=== PATIENT | male | born 1960 | race Caucasian/White ===

== ENCOUNTER 2018-05-08 11:14 | Day surgery (SDC) | payer BC, SELFPAY ==
[2018-05-08 11:35] VITALS: BP 159/93; PULSE 71; RESP 18; TEMP 36.7; O2SAT 98
[2018-05-08] MEDS: Lactated Ringers 1,000 ML 30 ML IV (11:50)
--- NOTE | 2018-05-08 14:50 | BOWEL_PTH ---
PATIENT: Earl Cardoso LOC: [facility] U#:[id number] AGE/SX: 58/M ROOM: RE05/08/[address]: Yony Azul DO : 1960 BED: DIS: 05/08/2018 SPEC #: [id number] RECD: 05/08/18 17:36 STATUS: TAMIE REQ #: [id number] NATY: 05/08/18 14:[address]: Yony Azul DEPT: Surgical Specimen RECD BY: Adriana Johnson ENTERED: 05/08/18 17:37 SP TYPE: Bowel OTHR DR: Tucker Hernandez Tissues: 1 - BIOPSY BOWEL Procedures: GROSS AND MICRO LEVEL 4 Comments: [id number]
[2018-05-08 15:28] VITALS: BP 182/110; PULSE 58; RESP 18; TEMP 36.7; O2SAT 98
--- NOTE | 2018-05-08 15:38 | COLE_ITS ---
Date of service: 05/08/18 Time of Service: 15:00 Colonoscopy Report Date of procedure: 05/08/18 Pre-op diagnosis general: Personal history of colon polyps Post-op diagnosis procedure note: other (Rectal mass) Procedure: Colonoscopy to the Cecum with biopsy by cold forceps. Surgeon: Yony Azul Anesthesia proc note operative: MAC (Yves Robles CRNA; ASA II, Mallamapati class II) Estimated blood loss (mL): 1 Pathology: other (Rectal mass biopsies) Complications: None Disposition: same day Indications: 58-year-old gentleman presenting for colorectal cancer screening with a personal history of colon polyps. His last colonoscopy was 5 years ago, which was remarkable for a tubular adenoma and a sessile serrated adenoma. He has been asymptomatic since his last colonoscopy, which she denies any hematochezia, m elana, abdominal pain, change in bowel habits, weight loss, night sweats, or fatigue. The colonoscopy procedure was reviewed with him, and the risk of the procedure discussed at length. All his questions were answered to his satisfaction. Consent was obtained to proceed with colonoscopy. Prep: Miralax/Dulcolax (Colon prep excellent) Procedure Start Time: 14:35 Procedure End Time: 14:50 Retraction Time: 10 Findings: In examining the colon from cecum to anus. A ulcerated mass was identified in the rectum at about 12 cm. Multiple biopsies were taken and submitted for pathology. No other abnormalities were noted of the colon, rectum, or anorectal junction. Procedure Description: The patient was seen in the day surgery waiting area. His identification was confirmed, and procedure checked. He was then brought to the procedure room. Monitoring for telemetry, blood pressure, oxygen saturation, and end tidal CO2 monitoring were applied. An appropriate time out was performed to confirm, identification, allergies, medication, procedure, was performed. Sedation was titrated for affect by the MAINTENANCE REPRESENTATIVE; Once adequate sedation was achieved, I performed a inspection of the external perineum, and a digitial rectal examination. No significant external abnormalities were noted. On digital rectal examination, there was no blood, no masses, good rectal tone, and a normal prostate. I advanced the colonoscope from the anus to the cecum under direct visualization. The cecum was identified by the ileal-cecal valve, and the appendiceal orifice. The scope was then withdrawn in circumferential manner from the cecum to the rectum. No abnormalites were noted in the colon. The scope was then withdrawn into the rectum, and ulcerated mass was identified at approximately 12 cm from the anal verge in the rectum. It was nonspecific circumferential, and occupied less than one fourth of the circumference of the lumen. The scope was then retroflexed, and no further abnormalities were noted of the rectum or anorectal junction. The scope was then withdrawn, terminating the procedure. There were no complications during the procedure, and the patient tolerated the procedure well. He was returned to the day surgery recovery area in good condition. Plan: Ulcerated rectal mass suspicious for rectal malignancy with biopsies pending. In the interim we will plan to obtain a CT abdomen pelvis, along with chest if able to obtain authorization for chest abdomen and pelvis, otherwise will obtain CT abdomen pelvis with chest x-ray. Plan for referral to colorectal surgery if confirmed as cancer for further workup and possible transanal excision if favorable.
[2018-05-08] MEDS: Acetaminophen 325 MG TAB 650 MG PO (15:45)
--- NOTE | 2018-05-08 19:16 | W.PM.DSUDISC ---
Discharge Plan Disposition Patient Disposition: HOME Condition: Good Discharge Details Reason For Visit: Screening colonoscopy w/personal hx colon polyps Attending Provider: Yony Azul Primary Care Provider: Tucker Hernandez [place] Meds and New Rx's Prescriptions: Continued Vyvanse 40 mg capsule 40 mg PO DAILY RF: 0 acetaminophen [Acetaminophen Extra Strength] 500 MG tablet 500 - 1,000 mg PO PRN PRNRF: 0 ibuprofen 200 mg Capsule 400 mg PO QID PRNRF: 0 diclofenac sodium 1 % Gel 2 g TOPICAL QID RF: 0 Discontinued bisacodyl [Dulcolax (bisacodyl)] 5 mg tablet,delayed release (DR/EC) 5 mg PO ONCE Qty: 4 RF: 0 polyethylene glycol 3350 17 gram/dose powder 255 g PO ONCE Qty: 255 RF: 0 Discharge Instructions Instructions: Colonoscopy (DC) Stand Alone Forms: Colonoscopy Post Instructions, Rachel Qiu (DSU) Activity:: Activity as Tolerated Diet:: As Tolerated Discharge Orders Discharge Orders: Discharge Order (Routine); Ordered 05/08/18 Ordered By: Yony Azul Discharge Data Discharge Date/Time-TO BE ENTERED AT DEPARTURE: 05/08/18 16:00 Discharge Comment: PT ESCORTED HOME WITH SPOUSE DS: Diagnosis Discharge Diagnosis (1) Encounter for screening colonoscopy: Status: Resolved Asessment and Plan: Colonoscopy performed
== END 2018-05-08 16:00 | disposition home or self-care (01) ==
PROVIDERS: PCP Internal Medicine; Visit Provider Surgery
PROC: 0DJD8ZZ Inspection of Lower Intestinal Tract, Via Natural or Artificial Opening Endoscopic (ICD-10-PCS; CPT 45378; principal; 2018-05-08 12:30)
DX: Z12.11 Encounter for screening for malignant neoplasm of colon (principal); K51.20 Ulcerative (chronic) proctitis without complications; K62.1 Rectal polyp; Z86.010 Personal history of colon polyps
CPT/HCPCS: 45380; 88305

== ENCOUNTER 2018-05-14 01:04 | Outpatient (CLI) | payer BC, SELFPAY ==
--- NOTE | 2018-05-14 12:21 | DI.CT_ITS ---
SYMPTOMS/DIAGNOSIS: RECTAL CANCER STAGING, C20, MALIGNANT NEOPLASM OF RECTUM CT SCAN OF THE CHEST, ABDOMEN AND PELVIS: CT scan of the chest, abdomen and pelvis was performed following the uneventful administration of intravenous and oral contrast material. Comparison CT scan of the chest is 09/05/14. CT SCAN OF THE ABDOMEN AND PELVIS: The liver is normal in size. No evidence of a hepatic mass is present. The portal and superior mesenteric veins are patent. The gallbladder is negative. No biliary ductal dilatation is seen. The pancreas, spleen and right adrenal gland are unremarkable. There is nodularity of the left adrenal gland. There is a 2 x 1.9 cm nodule on the left adrenal gland. The kidneys show normal and symmetric enhancement. No suspicious solid renal masses or obstruction is seen. The urinary bladder is intact. The reproductive organs are unremarkable as visualized. The abdominal aorta is of normal caliber. No aneurysmal dilatation is present. No abdominal or pelvic adenopathy, ascites or pneumoperitoneum is present. There is diverticulosis of the colon, but no evidence of acute diverticulitis. No bowel inflammatory or infectious process is seen. No findings to suggest an acute appendicitis are present. No obstructing masses appreciated. No aggressive osseous lesions are identified. IMPRESSION: 1. A 2 cm left adrenal nodule. There was mild nodularity present in the examination from 09/05/14; however, this has increased in size. While an adenoma may be considered, metastasis cannot be entirely excluded. Further evaluation is recommended. 2. No evidence of hepatic or osseous metastatic disease. CT SCAN OF THE CHEST: The visualized thyroid gland is grossly unremarkable. The thoracic aorta is of normal caliber. Heart size is within normal limits. No significant pericardial effusion is seen. No significant thoracic adenopathy is present. No pleural effusion or pneumothorax is identified. No pulmonary nodules or infiltrates are seen. The tracheobronchial tree is unremarkable. Degenerative changes are seen in the spine. There is again seen an area of sclerosis involving the left 5th rib, which is unchanged. No aggressive osseous lesions are identified. IMPRESSION: No evidence of thoracic metastatic disease.
[2018-05-14 13:08] LABS: CREATININE 1.11 mg/dL (0.70-1.30)
[2018-05-14] MEDS: Omnipaque 350 MG/ML 100 ML BTL IJ (14:06)
[2018-05-14] MEDS: Omnipaque 350 MG/ML 50 ML BTL PO (14:07)
== END 2018-05-14 01:24 ==
PROVIDERS: PCP Internal Medicine; Visit Provider Surgery
DX: C20 Malignant neoplasm of rectum (principal); E27.8 Other specified disorders of adrenal gland; Z12.89 Encounter for screening for malignant neoplasm of other sites
CPT/HCPCS: 36415; 74177; 71260; 82565; J3490; Q9967

== ENCOUNTER 2018-07-16 14:56 | Outpatient (REF) | payer BC, SELFPAY | END 2018-07-16 15:16 | LOC: LBN 14:56 | PROVIDERS: PCP Internal Medicine; Visit Provider Internal Medicine | DX: K92.2 Gastrointestinal hemorrhage, unspecified (principal); K52.9 Noninfective gastroenteritis and colitis, unspecified | CPT/HCPCS: 87329; 83630; 87177; 87324 ==

== ENCOUNTER 2019-04-26 13:49 | Outpatient (REF) | payer BC, SELFPAY ==
[2019-05-01 01:27] LABS: Lactoferrin, Qt, Stool <30.0 mcg/mL
== END 2019-04-26 14:09 ==
LOC: LBN 13:49
PROVIDERS: PCP Internal Medicine; Visit Provider Internal Medicine Gastroenterology
DX: R19.5 Other fecal abnormalities (principal)
CPT/HCPCS: 83631; 87177

== ENCOUNTER 2019-04-29 06:50 | Outpatient (CLI) | payer BC, SELFPAY ==
[2019-04-29 09:50] LABS: Anion Gap 5.1 mmol/L (3-11); BUN 20 mg/dL (7-18); CO2 32.9 mmol/L (21.0-32.0); CREATININE 0.93 mg/dL (0.70-1.30); Calcium 8.8 mg/dL (8.5-10.1); Calculated LDL 118 mg/dL; Chloride 104 mmol/L (98-107); Cholesterol 184 mg/dL (<200); Glucose 141 mg/dL (74-106); HDL Cholesterol 38 mg/dL (40-60); Potassium 4.2 mmol/L (3.5-5.1); Sodium 142 mmol/L (136-145); Triglyceride 141 mg/dL (<150)
--- NOTE | 2019-04-29 10:17 | DI.CT_ITS ---
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 Delayed images were also obtained. FINDINGS: Images obtained through the lung bases are unremarkable. Liver, spleen and pancreas appear normal. Gallbladder and bile ducts are CT normal. No renal abnormality seen. Right adrenal appears normal. Nodular thickening of the left adrenal gland measuring up to about 2 cm was noted on prior examinati on of 05/14/2018. Findings appear grossly unchanged on today's examination. No right adrenal abnorm ality seen. IMPRESSION: Little interval change in appearance of left adrenal nodular thickening. An additional follow-up exa mination may be considered in about 6 months.
[2019-04-29] MEDS: Omnipaque 350 MG/ML 100 ML BTL IJ (10:34)
== END 2019-04-29 07:10 ==
PROVIDERS: PCP Internal Medicine; Visit Provider Internal Medicine
DX: E11.9 Type 2 diabetes mellitus without complications (principal); R03.0 Elevated blood-pressure reading, without diagnosis of hypertension; F90.0 Attention-deficit hyperactivity disorder, predominantly inattentive type; K51.20 Ulcerative (chronic) proctitis without complications; E27.8 Other specified disorders of adrenal gland; M79.642 Pain in left hand
CPT/HCPCS: 80048; 80061; 74170; J3490

== ENCOUNTER 2019-07-13 16:38 | Outpatient (REF) | payer BC, SELFPAY ==
[2019-07-13 20:07] LABS: PROTEIN 41.5 mg/dL (0.0-11.9)
[2019-07-13 21:01] LABS: Total Volume 2000 ml
[2019-07-16 12:05] LABS: Urine Volume 2000 mL
[2019-07-16 22:45] LABS: Cortisol, U 60 mcg/24 h (3.5-45); Urine Volume 2000 mL
[2019-07-16 23:55] LABS: Creatinine, Random Ur 125 mg/dL; Total Metanephrine/Creatinine 288 mcg/g Cr
== END 2019-07-13 16:58 ==
LOC: NCHCN 16:38
PROVIDERS: PCP Internal Medicine; Visit Provider Internal Medicine
DX: R03.0 Elevated blood-pressure reading, without diagnosis of hypertension (principal); K51.20 Ulcerative (chronic) proctitis without complications; E11.9 Type 2 diabetes mellitus without complications; E27.8 Other specified disorders of adrenal gland; F90.0 Attention-deficit hyperactivity disorder, predominantly inattentive type
CPT/HCPCS: 81050; 82384; 82530; 83789; 83835; 84155

== ENCOUNTER 2019-10-13 13:51 | Outpatient (CLI) | payer BC, SELFPAY ==
[2019-10-14 01:47] LABS: COVID-19 RT-PCR UVMMC Result Negative (Negative)
== END 2019-10-13 14:11 ==
PROVIDERS: PCP Internal Medicine; Visit Provider Internal Medicine
DX: Z11.59 Encounter for screening for other viral diseases (principal)
CPT/HCPCS: U0003

== ENCOUNTER 2019-10-19 12:24 | Outpatient (REF) | payer BC, SELFPAY ==
[2019-10-19 22:31] LABS: Hemoglobin A1C 6.7 % (3.8-5.6)
[2019-10-19 23:09] LABS: BUN 20 mg/dL (7-18); CREATININE 0.93 mg/dL (0.70-1.30); Calcium 9.2 mg/dL (8.5-10.1); Chloride 105 mmol/L (98-107); Glucose 136 mg/dL (74-106); Magnesium 1.8 mg/dL (1.8-2.4); Potassium 4.4 mmol/L (3.5-5.1); Sodium 142 mmol/L (136-145); Vitamin B12 376 pg/mL (193-986)
[2019-10-20 17:39] LABS: Rheumatoid Factor <8.6 IU/mL (<12.0)
[2019-10-21 09:28] LABS: Cyclic Citrullinated Peptide <2.5 U/mL (<5.0)
== END 2019-10-19 12:44 ==
LOC: NCHCN 12:24
PROVIDERS: PCP Internal Medicine; Visit Provider Internal Medicine
DX: E11.9 Type 2 diabetes mellitus without complications (principal); R03.0 Elevated blood-pressure reading, without diagnosis of hypertension; M79.642 Pain in left hand; E66.9 Obesity, unspecified; R07.89 Other chest pain; M25.50 Pain in unspecified joint; R20.2 Paresthesia of skin
CPT/HCPCS: 80048; 86200; 82607; 83036; 83735; 86431

== ENCOUNTER 2020-03-13 21:01 | Outpatient (REF) | payer BC, SELFPAY ==
[2020-03-13 21:22] LABS: PROTEIN 39.1 mg/dL
[2020-03-13 21:47] LABS: COMMENT (LAB VIEW ONLY) 182.93 mg/dL; Prot/Crea Ur Ratio 0.21
== END 2020-03-13 21:21 ==
LOC: NCHCN 21:01
PROVIDERS: PCP Internal Medicine; Visit Provider Internal Medicine
DX: R80.9 Proteinuria, unspecified (principal)
CPT/HCPCS: 82565; 84156

== ENCOUNTER 2020-07-20 16:26 | Outpatient (REF) | payer BC, SELFPAY | END 2020-07-20 16:27 | disposition home or self-care (01) | LOC: LBN 16:26 | PROVIDERS: PCP Internal Medicine; Visit Provider Internal Medicine Gastroenterology | DX: R19.7 Diarrhea, unspecified (principal) | CPT/HCPCS: 83630; 87177 ==

== ENCOUNTER 2020-12-29 14:01 | Outpatient (CLI) | payer BC, SELFPAY ==
--- NOTE | 2020-12-29 | DI.RAD_ITS ---
Exam(s) XR FOOT LT COMPLETE EXAM: XR FOOT LT COMPLETE CLINICAL HISTORY: PAIN LT FOOT, M79.672, ? FRACTURE. TECHNIQUE: 2D digital imaging was performed. COMPARISON: No exams were available for comparison FINDINGS: There is no evidence of acute fracture nor diastasis of the Lisfranc joint. No pes planus. No osseo us lesions nor erosions. No radiopaque foreign body. IMPRESSION: No fracture evident DATA REPOSITORY: RADIATION DOSE DELIVERED:
--- NOTE | 2020-12-29 | DI.RAD_ITS ---
Exam(s) XR ANKLE LT COMPLETE EXAM: XR ANKLE LT COMPLETE CLINICAL HISTORY: LT ANKLE PAIN, M25.572, ? FRACTURE. TECHNIQUE: 2D digital imaging was performed. COMPARISON: No exams were available for comparison FINDINGS: There is soft tissue swelling on the lateral aspect of the ankle joint. No obvious fracture no widen ing of the mortise. No osteochondral defects of the talar dome. However, there is some degenerative change in the anterior aspect of the ankle joint. No obvious loose intra-articular body. Small oss ified density posteriorly is probably an os trigonum. There is no osseous tarsal coalition. IMPRESSION: DATA REPOSITORY: RADIATION DOSE DELIVERED:
--- NOTE | 2020-12-29 16:47 | DI.VRAD_ITS ---
PROCEDURE INFORMATION: Exam: XR Left Foot Exam date and time: 12/29/2020 3:44 PM Age: 60 years old Clinical indication: Other: Pain lt foot, ? fracture TECHNIQUE: Imaging protocol: XR Left foot. Views: 3 or more views. COMPARISON: CR XR ANKLE LT COMPLETE 12/29/2020 4:03 PM FINDINGS: Bones/joints: Normal. Soft tissues: Normal. IMPRESSION: No acute findings. Dictated and Authenticated by: Conrad Stoner MD. Ordering:RAMESH Torrez MD
--- NOTE | 2020-12-29 16:49 | DI.VRAD_ITS ---
PROCEDURE INFORMATION: Exam: XR Left Ankle Exam date and time: 12/29/2020 3:44 PM Age: 60 years old Clinical indication: Other: Lt ankle pain, m25.572, ? fracture TECHNIQUE: Imaging protocol: XR Left ankle. Views: 3 or more views. COMPARISON: No relevant prior studies available. FINDINGS: Bones/joints: Normal. Soft tissues: There is soft tissue swelling about the ankle. This could represent a soft tissue injury. Clinical correlation is recommended. IMPRESSION: Soft tissue swelling about the ankle could represent a soft tissue injury. Clinical correlation is recommended. Further evaluation as clinically indicated Dictated and Authenticated by: Conrad Stoner MD. Ordering:RAMESH Torrez MD
== END 2020-12-29 14:21 ==
PROVIDERS: PCP Internal Medicine; Visit Provider Physician Assistant Medical
DX: M79.672 Pain in left foot (principal); M25.572 Pain in left ankle and joints of left foot; M19.072 Primary osteoarthritis, left ankle and foot
CPT/HCPCS: 73610; 73630

== ENCOUNTER 2021-02-08 10:43 | Outpatient (REF) | payer BC, SELFPAY ==
[2021-02-08 21:16] LABS: Anion Gap 6.3 mmol/L (3-11); BUN 15 mg/dL (7-18); CO2 30.7 mmol/L (21.0-32.0); CREATININE 0.8 mg/dL (0.70-1.30); Calcium 9.1 mg/dL (8.5-10.1); Chloride 103 mmol/L (98-107); Glucose 130 mg/dL (74-106); Potassium 4.1 mmol/L (3.5-5.1); Sodium 140 mmol/L (136-145)
== END 2021-02-08 10:44 | disposition home or self-care (01) ==
LOC: NCHCN 10:43
PROVIDERS: PCP Internal Medicine; Visit Provider Internal Medicine
DX: E11.9 Type 2 diabetes mellitus without complications (principal); E27.8 Other specified disorders of adrenal gland; F32.9 Major depressive disorder, single episode, unspecified; F90.0 Attention-deficit hyperactivity disorder, predominantly inattentive type
CPT/HCPCS: 80048

== ENCOUNTER 2021-03-15 12:41 | Outpatient (REF) | payer BC, SELFPAY ==
[2021-03-18 22:29] LABS: Midnight Cortisol <50 ng/dL (<100)
== END 2021-03-15 12:42 | disposition home or self-care (01) ==
LOC: NCHCN 12:41
PROVIDERS: PCP Internal Medicine; Visit Provider Internal Medicine
DX: E27.8 Other specified disorders of adrenal gland (principal)
CPT/HCPCS: 82530

== ENCOUNTER 2021-07-19 20:44 | Outpatient (REF) | payer BC, SELFPAY ==
[2021-07-19 15:35] LABS: PROTEIN 44.4 mg/dL; Prot/Crea Ur Ratio 0.23
== END 2021-07-19 20:45 | disposition home or self-care (01) ==
LOC: NCHCN 20:44
PROVIDERS: PCP Internal Medicine; Visit Provider Internal Medicine
DX: R80.8 Other proteinuria (principal)
CPT/HCPCS: 82565; 84156

== ENCOUNTER 2022-03-18 14:26 | Outpatient (REF) | payer BC, SELFPAY ==
[2022-03-18 16:21] LABS: Anion Gap 8.8 mmol/L (3-11); BUN 16 mg/dL (7-18); CO2 26.2 mmol/L (21.0-32.0); CREATININE 0.9 mg/dL (0.70-1.30); Calcium 8.8 mg/dL (8.5-10.1); Calculated LDL 95 mg/dL (<100); Chloride 103 mmol/L (98-107); Cholesterol 170 mg/dL (<200); Estimated GFR 95.97 (mL/min/1.73m2); Glucose 158 mg/dL (74-106); HDL Cholesterol 45 mg/dL (40-60); Potassium 4.5 mmol/L (3.5-5.1); Sodium 138 mmol/L (136-145); Triglyceride 153 mg/dL (<150)
== END 2022-03-18 14:27 | disposition home or self-care (01) ==
LOC: NCHCN 14:26
PROVIDERS: PCP Internal Medicine; Visit Provider Internal Medicine
DX: E11.9 Type 2 diabetes mellitus without complications (principal); M79.10 Myalgia, unspecified site; R80.8 Other proteinuria; K51.90 Ulcerative colitis, unspecified, without complications; I10 Essential (primary) hypertension; F90.9 Attention-deficit hyperactivity disorder, unspecified type; F32.9 Major depressive disorder, single episode, unspecified
CPT/HCPCS: 80048; 80061

== ENCOUNTER 2023-03-24 12:32 | Outpatient (REF) | payer BC, SELFPAY ==
[2023-03-24 14:31] LABS: HCT 50.9 % (40.0-50.0); HGB 17.1 g/dL (13.5-17.5); MCH 29.6 pg (27.0-33.0); MCHC 33.6 % (32.0-36.0); MCV 88 fL (80-95); MPV 10.7 fL (8.0-11.0); Platelet Count 242 10^3/uL (130-400); RBC 5.77 10^6/uL (4.36-5.78); RDW 12.6 % (11.8-14.1); RDW-SD 40.9 fL; WBC 8.38 10^3/uL (4.4-10.8)
[2023-03-24 14:36] LABS: BUN 21 mg/dL (7-18); Calcium 9.6 mg/dL (8.5-10.1); Chloride 103 mmol/L (98-107); Estimated GFR 84.05 (mL/min/1.73m2); Glucose 146 mg/dL (74-106); Potassium 4.7 mmol/L (3.5-5.1); Sodium 141 mmol/L (136-145)
[2023-03-24 15:05] LABS: Hemoglobin A1C 7.1 % (<5.7)
== END 2023-03-24 12:33 | disposition home or self-care (01) ==
LOC: NCHCN 12:32
PROVIDERS: PCP Internal Medicine; Visit Provider Internal Medicine
DX: Z00.00 Encounter for general adult medical examination without abnormal findings (principal); E11.9 Type 2 diabetes mellitus without complications; I10 Essential (primary) hypertension; K51.90 Ulcerative colitis, unspecified, without complications; F90.0 Attention-deficit hyperactivity disorder, predominantly inattentive type; F32.89 Other specified depressive episodes
CPT/HCPCS: 80048; 85027; 83036

== ENCOUNTER 2024-02-05 15:17 | Outpatient (REF) | payer MEDICAID, SELFPAY ==
[2024-02-05 21:13] LABS: Abs Immature Grans 0.03 10^3/uL (0.0-0.06); Absolute Basophil Count 0.08 10^3/uL (0.0-0.2); Absolute Eosinophil Count 0.41 10^3/uL (0.0-0.7); Absolute Lymphocyte Count 1.87 10^3/uL (1.2-3.4); Absolute Monocyte Count 0.71 10^3/uL (0.1-0.8); Absolute Neutrophil Count 5.84 10^3/uL (1.2-6.7); Basophils % 0.9 %; Eosinophils % 4.6 %; HCT 51.4 % (40.0-50.0); HGB 17.5 g/dL (13.5-17.5); Immature Grans % 0.3 %; Lymphocytes % 20.9 %; MCH 30.1 pg (27.0-33.0); MCV 89 fL (80-95); MPV 11.2 fL (8.0-11.0); Monocytes % 7.9 %; Neutrophils % 65.4 %; Platelet Count 242 10^3/uL (130-400); RBC 5.81 10^6/uL (4.36-5.78); RDW-SD 38.9 fL; WBC 8.94 10^3/uL (4.4-10.8)
[2024-02-05 21:15] LABS: ESR 15 mm/hr (0-20)
[2024-02-05 21:20] LABS: Bilirubin Negative (Negative); Blood Trace-intact (Negative); Clarity Clear (Clear); Glucose 500 mg/dL (Negative); Ketones Negative (Negative); Leukocyte Esterase Negative (Negative); Nitrite Negative (Negative); Specific Gravity 1.015 (1.005-1.025); Urobilinogen 0.2 mg/dL (Up to 0.2)
[2024-02-05 21:25] LABS: ALT 33 U/L (16-63); AST 24 U/L (15-37); Albumin 3.9 g/dL (3.4-5.0); Alkaline Phosphatase 111 U/L (46-116); Anion Gap 4.6 mmol/L (3-11); BUN 18 mg/dL (7-18); CO2 29.4 mmol/L (21.0-32.0); Calcium 9.3 mg/dL (8.5-10.1); Chloride 103 mmol/L (98-107); Estimated GFR 83.52 (mL/min/1.73m2); Glucose 141 mg/dL (74-106); Potassium 4.3 mmol/L (3.5-5.1); Sodium 137 mmol/L (136-145); Total Protein 7.2 g/dL (6.4-8.2)
[2024-02-05 21:27] LABS: Bacteria Negative HPF (Negative); C & S Indicated? No; Crystals Negative HPF (Negative); Epithelial Cells Negative HPF (Negative); Mucus Negative (Negative); WBC Negative HPF (0-5)
== END 2024-02-05 15:18 | disposition home or self-care (01) ==
LOC: NCHCN 15:17
PROVIDERS: PCP Internal Medicine; Visit Provider Family Medicine
DX: R10.9 Unspecified abdominal pain (principal)
CPT/HCPCS: 80053; 85652; 81003; 81015; 85025

== ENCOUNTER 2024-02-06 08:42 | Outpatient (CLI) | payer MEDICAID, SELFPAY ==
--- NOTE | 2024-02-06 | DI.CT_ITS ---
Exam(s) CT ABDOMEN PELVIS W EXAM: CT ABDOMEN PELVIS W CLINICAL HISTORY: ABD PAIN R10.9 H/O INFLAMMATORY BOWEL DISEASE, DIVERTICULOSIS, LLQ PAIN TECHNIQUE: Imaging Protocol: Axial computed tomography images with coronal and sagittal reformatted images were created and reviewed. CONTRAST MATERIAL: Intravenous: Omnipaque 350 Contrast volume:100 mL Oral: Yes COMPARISON: CT CT ABDOMEN WO/W from 04/29/2019 FINDINGS: ABDOMEN: Lung Bases: Normal where visualized. Liver: Normal density. No measurable mass. Portal, Superior Mesenteric, and Splenic Veins: Unremarkable. Gallbladder and Biliary Tract: No radiodense calculus or dilation. Pancreas: Normal density, no abnormal calcifications or inflammatory process. Spleen: Normal. Adrenals: No masses seen. Kidneys: Normal size, contour and axis. No radiodense stones or obstructive uropathy. No masses seen. Abdominal Aorta: Abdominal portion non-dilated. Atherosclerotic calcification is present. Bowel: There is diverticulosis of the colon but no evidence of acute diverticulitis. There is no paulina dence of appendicitis. No bowel wall thickening or obstruction is seen. Peritoneal Cavity: No ascites, collection or mesenteric inflammatory response. No free air. Lymph Nodes: Within normal limits. Bones: Within normal limits for the patient's age. Soft Tissues: There are bilateral fat containing inguinal hernias. PELVIS: Bladder: Symmetric distention, no gross wall thickening. Reproductive Organs: Unremarkable as visualized. Lymph Nodes: Within normal limits. Bones: Within normal limits for the patient's age. IMPRESSION: 1. No acute abdominal or pelvic process. 2. Colonic diverticulosis without evidence of acute diverticulitis. RADIATION DOSE DELIVERED: 617.36mGy.cm Total DLP DATA REPOSITORY: All CT scans at this facility are submitted to the National Radiology Data Registry (NRDR) Dose Index Registry (DIR) with the [employer] (ACR). RADIATION OPTIMIZATION: All CT scans at this facility use at least one of these dose optimization te chniques: automated exposure control; mA and/or kV adjustment per patient size (includes targeted exa ms where dose is matched to clinical indication); or iterative reconstruction.
[2024-02-06] MEDS: Barium Sulfate 2% W/V-Creamy Vanilla Smoothie 450 ML BTL PO (11:16)
[2024-02-06] MEDS: Barium Sulfate 2% W/V-Berry Smoothie 450 ML BTL PO (11:17)
[2024-02-06] MEDS: Normal Saline - Diluent 50 ML VIAL IJ (13:55)
[2024-02-06] MEDS: Omnipaque 350 MG/ML 100 ML BTL IJ (13:55)
== END 2024-02-06 09:02 ==
LOC: DI 08:43
PROVIDERS: PCP Internal Medicine; Visit Provider Family Medicine
DX: K57.32 Diverticulitis of large intestine without perforation or abscess without bleeding (principal)
CPT/HCPCS: 74177; J3490

== ENCOUNTER 2024-02-21 10:19 | Emergency (ER) | payer MEDICARE, SELFPAY ==
[2024-02-21 10:24] VITALS: BP 182/98; PULSE 75; RESP 15; TEMP 36.3; O2SAT 96
--- NOTE | 2024-02-21 10:45 | DI.RAD_ITS ---
Exam(s) XR HIP LT COMPLETE AP PELVIS EXAM: XR HIP LT COMPLETE AP PELVIS CLINICAL HISTORY: Pain. TECHNIQUE: 2D digital imaging was performed. COMPARISON: No exams were available for comparison FINDINGS: Two views. No evidence of pelvic nor hip fracture. No obvious degenerative changes in the hips. No osseous les ions. Bone density normal. IMPRESSION: No acute osseous findings in the pelvis and hips. DATA REPOSITORY: RADIATION DOSE DELIVERED:
--- NOTE | 2024-02-21 10:57 | W.ED.GENAD ---
Discharge Plan Disposition Patient Disposition: Home Condition: Stable Discharge Details Clinical Impression: Osteoarthritis of left hip Primary Care Provider: Tucker Hernandez ED Provider: Lorena Villarreal Home Meds and New Rx's Prescriptions: New prednisone 20 mg tablet 40 mg PO DAILY 5 Days Qty: 10 0RF No Action losartan 25 mg tablet 25 mg PO DAILY mesalamine 400 mg capsule (with del rel tablets) 400 mg PO QID Vyvanse 60 mg capsule 60 mg PO DAILY acetaminophen [Acetaminophen Extra Strength] 500 MG tablet 500 - 1,000 mg PO PRN PRN diclofenac sodium 1 % Gel 2 g TOPICAL QID Discharge Instructions Instructions: Osteoarthritis, Hip pain in adults Additional Instructions: At this time, X-ray result has not returned, However there is no obvious fracture or dislocation, I will call you if there is any abnormality on the X-ray. Please take the pain medications and prednisone as directed, alternate ice and heat. Follow up with primary care provider in 3-5 days. Return to ED sooner if any worsening or concerns. If you have continued concerns you may follow-up with orthopedics. Please take Tylenol with food every 4-6 hours as needed for pain and swelling. Referrals: Tucker Hernandez MD [Primary Care Provider] - 3 days HPI General Mode of arrival: ambulatory. Date/Time Provider Initiated Documentation: 02/21/24 10:29. Limitations to Documentation: no limitations. Information obtained by: patient, RN notes reviewed and old records reviewed. HPI Narrative: 64-year-old male presents to the ER with chief complaint of left hip pain over the last 3 weeks. Describes as sharp stabbing, began as a an aching pain and is now worse. Has been taking muscle relaxers with little to no relief, pain is relieved with direct pressure. Patient does have a past medical history of type 2 diabetes, ADHD depression, anxiety colon polyps, hemorrhoids, umbilical hernia. Related Data Home Medications ?Medication ?Instructions ?Recorded ?Confirmed acetaminophen 500 mg tablet 500 - 1,000 mg PO PRN PRN 02/08/13 11/30/19 (Acetaminophen Extra Strength) diclofenac sodium 1 % topical gel 2 g topical QID 05/08/18 11/30/19 lisdexamfetamine 60 mg capsule 60 mg PO DAILY 10/20/19 11/30/19 (Vyvanse) losartan 25 mg tablet 25 mg PO DAILY 11/30/19 11/30/19 mesalamine 400 mg capsule (with 400 mg PO QID 11/30/19 11/30/19 delayed release tablets inside) prednisone 20 mg tablet 40 mg (2 x 20 mg) PO DAILY 5 days 02/21/24 #10 tabs Previous Rx's ?Medication ?Instructions ?Recorded prednisone 20 mg tablet 40 mg (2 x 20 mg) PO DAILY 5 days 02/21/24 #10 tabs Allergies Allergy/AdvReac Type Severity Reaction Status Date / Time naproxen (From Naprosyn) AdvReac Severe BLEEDING Verified 04/24/18 11:04 NSAIDS (Non-Steroidal AdvReac GI upset Verified 11/30/19 14:28 Anti-Inflamma General Stated Complaint: Nk/Back Pain JOHANNA: 4 Review of Systems All systems reviewed & are unremarkable except as noted in HPI and below Exam Narrative Exam Narrative: Constitutional: Alert and oriented x3. Appears stated age. Normal body habitus. Head: Normocephalic, no trauma. Eyes: Pupils PERRL, Red reflex noted, EOM's intact. Eyelids symmetrical without lesions, discharge, or swelling. ENT: Bilateral TM's WNL, External ear normal to inspection, no mastoid TTP, swelling, or erythema, Nasal turbinates WNL, no nasal discharge. Normal dentition, Posterior pharynx WNL, no exudate. Chest: RRR, Normal S1, S2, distal pulses intact. Resp: Lungs clear to auscultation bilaterally, no wheezes, rales, or rhonchi. Abdomen: Soft, non-distended, Normoactive bowel sounds all 4 quads. Musculoskeletal: Guarded gait, tenderness to the left lateral hip with palpation. No deformities. Skin: No suspicious rashes or lesions. Capillary refill less than 2 sec. Neurologic: Cranial nerves II-XII intact. Alert and oriented x 3. Motor: No deficits noted. Sensory: Intact bilaterally all 4 extremities. Hematologic/Lymphatic: No ecchymosis, no lymphadenopathy. Course Vital Signs Vital signs: Vital Signs Temperature 36.3 C L 02/21/24 10:24 Pulse 75 02/21/24 10:24 Respiratory Rate 15 02/21/24 10:24 Blood Pressure 182/98 H 02/21/24 10:24 Pulse Oximetry 96 02/21/24 10:24 Temperature 36.3 C L 02/21/24 10:24 Pulse 75 02/21/24 10:24 Respiratory Rate 15 02/21/24 10:24 Blood Pressure 182/98 H 02/21/24 10:24 Blood Pressure Position Sitting 02/21/24 10:24 Pulse Oximetry 96 02/21/24 10:24 Oxygen Delivery Method Room Air 02/21/24 10:24 Oxygen Flow Rate 0 02/21/24 10:24 Pain Level 10 02/21/24 10:24 Medical Decision Making 64-year-old male presents to the ER with chief complaint of left hip pain over the last 3 weeks. Describes as sharp stabbing, began as a an aching pain and is now worse. Has been taking muscle relaxers with little to no relief, pain is relieved with direct pressure. Patient does have a past medical history of type 2 diabetes, ADHD depression, anxiety colon polyps, hemorrhoids, umbilical hernia. X-ray left hip ordered. Patient has been taking Tylenol and muscle relaxers. Patient was given oxycodone and prednisone 40 mg here daily. Instructed to follow-up with PCP or orthopedics if this continues. This text was generated using [employer] system, please disregard any oddities of phrase or misspellings. Quality:SDOH Health Related Social Needs: No Data to Display PFSH All Active Problems (Updated 02/21/24 @ 13:23 by Lorena Villarreal NP) Osteoarthritis of left hip (Acute) Cubital tunnel syndrome on right (Acute) Right carpal tunnel syndrome (Acute) H/O colonoscopy (Acute 05/08/18) 05/08/18 Dr Azul, ulcerated rectal mass suspicious for rectal malignancy, path report showed polypoid fragments of rectal mucosa with chronic severely active proctitis with hyperplastic/serrated changes and prominent lymphoid aggregrates present. Dr Azul ordered CT of abd and pelvis, which showed a left adrenal nodule that had increased in size from 09/05/14 and recommended further evaluation as an adenoma may be considered, metastasis cannot be entirely excluded. Per Dr Jiménez's recommendation, Dr Hernandez referred to [facility], verified with Dr Hernandez's office. Diabetes (Chronic) Type 2, Not currently taking medications Medical History (Updated 02/21/24 @ 13:23 by Lorena Villarreal, SISSY) Preventative health care History of depression ADD (attention deficit disorder) Type 2 diabetes mellitus Hx of colonic polyps Myalgia Anxiety Adrenal nodule Ulcerative proctitis Borderline high blood pressure Low back pain Hand pain, left External hemorrhoids Paresthesia Arthralgia Atypical chest pain Umbilical hernia Family History Mother Personal history of malignant neoplasm BREAST Father Heart disease Pancreatitis Sister Personal history of malignant neoplasm THYROID Brother Personal history of malignant neoplasm LEUKEMIA GREAT AUNT Personal history of malignant neoplasm ? COLON Social History Smoking/Tobacco Use Status: Never Smoking risk assessment performed?: Yes Alcohol Intake: current Alcohol Intake frequency: a few times a week Drug use: Occasionally Substance use type: marijuana Household members: spouse Housing: house Number of Children: 3 current occupation: Violinist What is your relationship status?: Panel score (0-1 are the most socially isolated patients): 1 Frequency: 5-6 times per week Seatbelt use: always
[2024-02-21] MEDS: predniSONE 20 MG TAB 40 MG PO (11:05)
[2024-02-21] MEDS: oxyCODONE 5 MG TAB PO (11:06)
--- NOTE | 2024-02-21 14:02 | DI.VRAD_ITS ---
Addendum created by Jess Cruz MD on 02/21/2024 2:14:02 PM EDT: No fracture or dislocation. Degenerative changes of the visualized lumbar spine. Initial report created on 02/21/2024 2:02:05 PM EDT: PROCEDURE INFORMATION: Exam: XR Left Hip Exam date and time: 02/21/2024 11:35 AM Age: 64 years old Clinical indication: Hip pain; Left hip TECHNIQUE: Imaging protocol: Radiologic exam of the left hip. Views: 2 or 3 views hip with pelvis when performed. COMPARISON: CT ABDOMEN PELVIS W 06/02/2024 13:47 FINDINGS: Limitations: Only a single view of the left hip was submitted for interpretation. Bones/joints: Limited view of the left femur, left acetabulum, and left iliac bone is unremarkable. Soft tissues: Unremarkable. IMPRESSION: No evidence for acute bony injury on a single view of the left hip. Dictated and Authenticated by: Jess Cruz MD. Ordering:MAYI Carrillo MD
== END 2024-02-21 13:34 | disposition home or self-care (01) ==
PROVIDERS: Emergency Provider Registered Nurse Emergency; PCP Internal Medicine
DX: M16.12 Unilateral primary osteoarthritis, left hip (principal); E11.9 Type 2 diabetes mellitus without complications
CPT/HCPCS: 99283; 73502; J7512

== ENCOUNTER 2024-03-16 01:05 | Outpatient (CLI) | payer MEDICARE, SELFPAY ==
--- NOTE | 2024-03-16 09:10 | DI.MRI_ITS ---
Exam(s) MR LUMBAR SPINE WO EXAM: MR LUMBAR SPINE WO CLINICAL HISTORY: Lumbosacral radiculopathy, M54.17. TECHNIQUE: Multiplanar multisequence MRI of the Lumbar spine was performed. COMPARISON: CT CT ABDOMEN PELVIS W from 02/06/2024 FINDINGS: Bones: The last intervertebral disc space is designated the L5/S1 level for the numbering purpose of this examination. The vertebral body heights are well maintained. Alignment is satisfactory. Endpla te degenerative signal changes are present particularly at L4-L5. Cord: The conus tip ends at the T12 level. It is of normal size and signal intensity. T12-L1: No disc herniations or bulges are present. No central spinal canal or neural foraminal stenos is. L1-2: There is eccentric disc protrusion laterally on the left causing mild left neural foraminal anna nosis. No central spinal canal or right neural foraminal stenosis is present. L2-3: No disc herniations or bulges are present. No central spinal canal or neural foraminal stenosis . L3-4: No disc herniations or bulges are present. No central spinal canal or neural foraminal stenosis . L4-5: There is a disc herniation at this level eccentric to the right. There are degenerative change s of the facets and hypertrophy of the ligamentum flavum. The findings cause moderate central spinal canal stenosis. There is right lateral recess stenosis compressing the right L5 nerve root. There is moderate bilateral neural foraminal stenosis. L5-S1: There is a mild diffuse disc bulge. Mild degenerative changes of the facets are present. The re is moderate narrowing of the left neural foramen. No significant central spinal canal or right ne ural foraminal stenosis is seen. Soft tissues: The visualized SI joints and sacrum are well maintained. The paraspinal soft tissues ar e unremarkable. IMPRESSION: 1. At L4-L5 there is a right paracentral disc herniation causing right lateral recess stenosis and co mpressing the right L5 nerve root. 2. Degenerative changes are also present at L4-5 causing moderate bilateral neural foraminal stenosis and moderate central spinal canal stenosis. 3. At L1-L2 there is a disc protrusion laterally on the left causing mild left neural foraminal steno sis. 4. Degenerative changes at L5-S1 causes moderate left neural foraminal stenosis. DATA REPOSITORY:
== END 2024-03-16 01:25 ==
PROVIDERS: PCP Family Medicine; Visit Provider Family Medicine
DX: M48.062 Spinal stenosis, lumbar region with neurogenic claudication (principal)
CPT/HCPCS: 72148

== ENCOUNTER 2024-05-19 15:57 | Outpatient (CLI) | payer MEDICARE, MEDICAID, SELFPAY ==
--- NOTE | 2024-05-19 14:06 | DI.RAD_ITS ---
Exam(s) XR SHOULDER RT COMPLETE 2+V EXAM: XR SHOULDER RT COMPLETE 2+V CLINICAL HISTORY: RIGHT SHOULDER PAIN. TECHNIQUE: 2D digital imaging was performed. COMPARISON: CR XR SHOULDER LT COMPLETE 2+V from 05/19/2024 FINDINGS: Two views-Grashey and axial views No evidence of fracture or dislocation nor diminution of the subacromial space. However, are 2 small soft tissue calcifications contiguous with the lateral aspect of the greater tuberosity consistent w ith calcific rotator cuff tendinitis. The subacromial space is not diminished. No osteophytes in th e glenohumeral joint. There are degenerative changes including degenerative subarticular cysts in th e AC joint. The subacromial space does not appear obviously diminished. Bone density normal. No significant osseous lesions. IMPRESSION: Mild degenerative changes in the glenohumeral joint. Moderate degenerative changes in the AC joint Calcific rotator cuff tendinitis. DATA REPOSITORY: RADIATION DOSE DELIVERED:
--- NOTE | 2024-05-19 14:06 | DI.RAD_ITS ---
Exam(s) XR SHOULDER LT COMPLETE 2+V EXAM: XR SHOULDER LT COMPLETE 2+V CLINICAL HISTORY: LEFT SHOULDER PAIN. TECHNIQUE: 2D digital imaging was performed. COMPARISON: CR LEFT SHOULDER COMPLETE from 05/07/2013 FINDINGS: Two views Grashey and axial views of the left shoulder reveal no evidence of acute fracture or dislocation or a bnormal soft tissue calcifications in the subacromial space. On the axial view there is a small 2 x 1 millimeter calcific density adjacent to the anterior cortex of the proximal humerus. Suspect that this may be a loose body within the biceps tendon sheath. There are no other calcified loose bodies evident. There are some degenerative changes in the glenohumeral joint. Mild joint space narrowing. There is a small osteophyte on the inferior articular surface of the humeral head. There are no degenerative subarticular cysts in the osseous glenoid fossa evident. There is some degenerative cysts evident i n the humeral head both mid aspect and at the level the greater tuberosity visualize AC joint appears unremarkable. Bone density normal. No osseous lesions. IMPRESSION: Moderate degenerative changes in the glenohumeral joint. Small calcification which is probably within the biceps tendon sheath DATA REPOSITORY: RADIATION DOSE DELIVERED:
== END 2024-05-19 15:58 | disposition home or self-care (01) ==
LOC: DIORS 15:57
PROVIDERS: PCP Family Medicine; Referring Provider Family Medicine; Visit Provider Student in an Organized Health Care Education/Training Program
DX: M19.011 Primary osteoarthritis, right shoulder; M19.012 Primary osteoarthritis, left shoulder
CPT/HCPCS: 20610; 99213; J1010; 73030

== ENCOUNTER 2025-01-18 18:09 | Outpatient (REF) | payer MEDICARE, MEDICAID, SELFPAY ==
[2025-01-18 15:38] LABS: ALT 34 U/L (16-63); AST 25 U/L (15-37); Albumin 4.0 g/dL (3.4-5.0); Alkaline Phosphatase 98 U/L (46-116); Anion Gap 8.6 mmol/L (3-11); BUN 15 mg/dL (7-18); Bilirubin, Total 1.0 mg/dL (0.2-1.0); CO2 28.4 mmol/L (21.0-32.0); Calcium 9.0 mg/dL (8.5-10.1); Chloride 103 mmol/L (98-107); Estimated GFR 98.21 (mL/min/1.73m2); Glucose 128 mg/dL (74-106); Potassium 4.3 mmol/L (3.5-5.1); Sodium 140 mmol/L (136-145); Total Protein 7.0 g/dL (6.4-8.2)
== END 2025-01-18 18:10 | disposition home or self-care (01) ==
LOC: NCHCN 18:09
PROVIDERS: PCP Family Medicine; Visit Provider Family Medicine
DX: I10 Essential (primary) hypertension (principal)
CPT/HCPCS: 80053

== ENCOUNTER → 2025-04-19 00:28 | Outpatient (CLI) | payer MEDICARE, MEDICAID, SELFPAY ==
--- NOTE | 2025-04-19 | DI.RAD_ITS ---
Exam(s) XR CHEST 2V PA LATERAL EXAM: XR CHEST 2V PA LATERAL CLINICAL HISTORY: WHEEZING,R06.2 TECHNIQUE: 2D digital imaging was performed. Two views. COMPARISON: No exams were available for comparison FINDINGS: HEART: Normal size. Aorta: Not dilated. PULMONARY VASCULATURE: Normal. MEDIASTINUM: Unremarkable. LUNGS: Clear. PLEURAL SPACE: No pleural effusion or pneumothorax. BONE:Unremarkable for age. SOFT TISSUES: Unremarkable. IMPRESSION: No acute abnormality. DATA REPOSITORY: RADIATION DOSE DELIVERED:
== END ==
LOC: DI 00:29
PROVIDERS: PCP Family Medicine; Visit Provider Family Medicine
DX: R06.2 Wheezing (principal)
CPT/HCPCS: 71046